=== PATIENT | female | born 1945 | race Caucasian/White ===

== ENCOUNTER 2020-09-27 13:33 | Emergency (ER) | payer BC, MEDICARE ==
[~2020-09-27] VITALS: Ht 165.1 cm; Wt 66.4 kg
--- NOTE | 2020-09-27 14:00 | NUR ---
PT BIB VIA POV. PER PT THEY WENT TO [facility]/T [facility] AND TOLD THEM TO COME TO [facility]. 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 PT RESTING IN [facility], ALL MONITORING IN PLACE, AT BEDSIDE, WILL CONTINUE TO MONITOR.
[2020-09-27 14:39] LABS: BASOPHILS % (AUTO) 0 % (0-1); EOSINOPHILS % (AUTO) 3 % (1-7); LYMPHOCYTES % (AUTO) 20 % (22-44); MEAN CORPUSCULAR HEMOGLOBIN 29.6 pg (27.0-34.8); MEAN CORPUSCULAR HGB CONC 33.4 g/dL (32.4-35.8); MEAN PLATELET VOLUME 7.4 fL (7.4-10.4); MONOCYTES % (AUTO) 11 % (2-9); NEUTROPHILS % (AUTO) 66 % (42-75); PLATELET COUNT 332 x10^3/uL (130-400); RED BLOOD COUNT 4.29 x10^6/uL (3.82-5.3); RED CELL DISTRIBUTION WIDTH 13.1 % (9.6-15.2)
--- NOTE | 2020-09-27 14:40 | NUR ---
PT TO CT VIA [facility].
[2020-09-27 14:47] LABS: MD NO
[2020-09-27 14:51] LABS: ALANINE AMINOTRANSFERASE 27 U/L (12-78); ALBUMIN 3.4 g/dL (3.4-5.0); ANION GAP 0 mmol/L (5-15); CALCIUM 9.2 mg/dL (8.5-10.1); CHLORIDE 103 mmol/L (98-107); CREATININE 0.92 mg/dL (0.55-1.02)
[2020-09-27 15:17] LABS: ALKALINE PHOSPHATASE 96 U/L (45-117); BILIRUBIN,TOTAL 0.5 mg/dL (0.2-1.0); TOTAL PROTEIN 7.4 g/dL (6.4-8.2)
[2020-09-27 15:28] LABS: MICROSCOPIC INDICATED
[2020-09-27 16:44] VITALS: BP 179/97
== END 2020-09-27 16:45 | disposition home or self-care (01) ==
LOC: ED 16:34
DX: G31.1 Senile degeneration of brain, not elsewhere classified (principal); I67.82 Cerebral ischemia; W01.0XXA Fall on same level from slipping, tripping and stumbling without subsequent striking against object, initial encounter; Y93.89 Activity, other specified; Y92.89 Other specified places as the place of occurrence of the external cause; Y99.8 Other external cause status
CPT/HCPCS: 36415; 70450; 80053; 81001; 82607; 85025; 99284